=== PATIENT | male | born 1990 ===

== ENCOUNTER 2019-10-14 11:21 | Emergency (ER) | payer SELFPAY ==
[~2019-10-14] VITALS: Ht 185.4 cm; Wt 131.9 kg
[2019-10-14 11:56] VITALS: BP 142/86
[2019-10-14 12:20] LABS: BASOPHILS % (AUTO) 0.4 % (0-1); EOSINOPHILS # (AUTO) 0.1 X10'3 (0-0.9); EOSINOPHILS % (AUTO) 1.2 % (0-6); HEMATOCRIT 40.8 % (42.0-52.0); LYMPHOCYTES # (AUTO) 1.1 X10'3 (1.1-4.8); LYMPHOCYTES % (AUTO) 10.7 % (21-51); MEAN CORPUSCULAR HEMOGLOBIN 30.4 PG (27.0-31.0); MEAN CORPUSCULAR HGB CONC 34.4 g/dL (33.0-36.5); MEAN CORPUSCULAR VOLUME 88.3 FL (78-98); MONOCYTES # (AUTO) 0.8 X10'3 (0-0.9); MONOCYTES % (AUTO) 8.1 % (2-12); NEUTROPHILS # (AUTO) 8.2 X10'3 (1.8-7.7); NEUTROPHILS % (AUTO) 79.6 % (42-75); PLATELET COUNT 301 X10'3 (140-440); RED BLOOD COUNT 4.62 X10'6 (4.70-6.10); RED CELL DISTRIBUTION WIDTH 12.9 % (11.5-14.5); WHITE BLOOD COUNT 10.4 X10'3 (4.5-11.0)
[2019-10-14 12:34] LABS: ALANINE AMINOTRANSFERASE 167 U/L (12-78); ALBUMIN 3.6 G/DL (3.4-5.0); ALBUMIN/GLOBULIN RATIO 0.8 (1.1-1.5); ALKALINE PHOSPHATASE 118 IU/L (46-116); ANION GAP 10 (8-16); ASPARTATE AMINO TRANSFERASE 51 U/L (10-37); BILIRUBIN,TOTAL 0.6 MG/DL (0.1-1.0); BLOOD UREA NITROGEN 9 MG/DL (7-18); BUN/CREATININE RATIO 12.5 (5.4-32.0); CALCIUM 9.4 MG/DL (8.5-10.1); CHLORIDE 100 MMOL/L (99-107); CREATININE 0.72 MG/DL (0.60-1.10); GLUCOSE 105 MG/DL (70-104); LIPASE 66 U/L (73-393); POTASSIUM 5.3 MMOL/L (3.5-5.1); SODIUM 139 MMOL/L (135-145); TOTAL CARBON DIOXIDE 29.3 MMOL/L (24-32); TOTAL PROTEIN 8.4 G/DL (6.4-8.2); eGFR > 90 ML/MIN
--- NOTE | 2019-10-14 13:57 | NUR ---
PT. ANOUNCED TO ER ADMITING
== END 2019-10-14 13:57 | disposition left against medical advice (07) ==
LOC: ER 11:23
DX: N50.811 Right testicular pain (principal); Z53.21 Procedure and treatment not carried out due to patient leaving prior to being seen by health care provider
CPT/HCPCS: 36415; 80053; 83690; 85025